=== PATIENT | female | born 1975 | race Caucasian/White ===

== ENCOUNTER → 2018-08-26 14:17 | Outpatient (CLI) | payer OTHER, SELFPAY ==
[2018-08-30 17:09] LABS: HPV APTIMA, High Risk Negative (Negative)
== END ==
PROVIDERS: Visit Provider Obstetrics & Gynecology
DX: Z12.4 Encounter for screening for malignant neoplasm of cervix (principal)
CPT/HCPCS: 87624; 88175; G0145

== ENCOUNTER → 2018-12-10 | Outpatient (CLI) | payer OTHER, SELFPAY ==
[2018-12-10 20:40] LABS: Chlamydia Trachomatis by PCR Negative (Negative); Neisserai gonorrhoeae by PCR Negative (Negative); Probe Check PASS; Sample Adequacy Control PASS; Specimen Processing Control PASS
== END | disposition home or self-care (01) ==
PROVIDERS: Visit Provider Obstetrics & Gynecology
DX: Z32.01 Encounter for pregnancy test, result positive (principal); Z11.3 Encounter for screening for infections with a predominantly sexual mode of transmission
CPT/HCPCS: 87491; 87591

== ENCOUNTER → 2019-01-06 | Outpatient (CLI) | payer OTHER, SELFPAY ==
[2019-01-06 16:09] LABS: Absolute Lymphocyte Count 1.81 X10^3/uL (0.83-4.51); Absolute Neutrophil Count 7.9 X10^3/uL (2.0-7.7); Basophil# 0.03 X10^3/uL; Basophil% 0.3 % (0-1); Eosinophil# 0.08 X10^3/uL; Eosinophils% 0.8 % (0-5); Hematocrit 36.2 % (37-47); Hemoglobin 12.4 g/dL (12.0-15.0); Lymphocyte # 1.81 X10^3/ul (4.0); Lymphocyte % 17.1 % (19-41); Mean Corp Hgb Conc 34.3 g/dL (32-36); Mean Corpuscular Hgb 31.1 pg (27.0-32.0); Mean Corpuscular Volume 90.7 fL (81-99); Mean Platelet Vol. 10.9 fl (6.2-12.0); Monocyte# 0.76 X10^3/uL; Monocyte% 7.2 % (0-10); NRBC Flagged by Analyzer 0 % (0-5); Neutrophil # 7.87 X10^3/uL (2.7-7.7); Platelet Count 226 K/mm3 (150-450); RBC Distribution Width CV 12.9 % (11.6-14.6); RBC Distribution Width SD 42.5 fl (35.1-43.9); Red Blood Count 3.99 M/mm3 (4.2-5.4); White Blood Count 10.6 K/mm3 (4.4-11.0)
[2019-01-06 16:10] LABS: Color, Urine Yellow (Yellow); Glucose, Dipstick Normal (Normal); Ketone-Dipstick Negative (Negative); Leukocyte Esterase-Dipstick 100 /ul (Negative); Nitrite-Dipstick Negative (Negative); Occult Blood-Urine 25 /ul (Negative); Protein-Dipstick Negative (Negative); Urine Bilirubin Dipstick Negative (Negative); Urine Clarity Clear (Clear); Urine Urobilinogen Normal (Normal); Urine pH 6.5 (5.0 - 8.0)
[2019-01-06 16:15] LABS: COTININE Drug Screen Negative (<200 ng/mL)
[2019-01-06 16:39] LABS: Thyroid Stim Hormone (TSH) 1.02 uIU/mL (0.358-3.74)
[2019-01-06 17:01] LABS: Amphetamine Urine VISTA NEGATIVE (<1000 ng/mL); Barbiturate Urine VISTA NEGATIVE (< 200 ng/mL); Benzodiazepine Urine VISTA NEGATIVE (< 200 ng/mL); Cocaine Urine VISTA NEGATIVE (< 300 ng/mL); Ecstacy Urine VISTA NEGATIVE (< 500 ng/mL); Methadone Urine VISTA NEGATIVE (< 300 ng/mL); PCP Urine VISTA NEGATIVE (< 25 ng/mL); THC Urine VISTA NEGATIVE (< 50 ng/mL); Vista UDS pH Range 6
[2019-01-07 09:43] LABS: HIV - WCH Non-Reactive (Nonreactive); Hepatitis B Surface Antigen Non-Reactive (Nonreactive); Hepatitis C Antibody Non-Reactive (Nonreactive); Rubella IgG 126.5 IU/mL; Vitamin D,25 Hydroxy 15.8 ng/mL (29.95-100.01)
[2019-01-10 04:45] LABS: Prenatal RPR NONREACTIVE (NONREACTIVE)
== END | disposition home or self-care (01) ==
LOC: WOBLAB 14:34
PROVIDERS: Visit Provider Obstetrics & Gynecology
DX: Z34.81 Encounter for supervision of other normal pregnancy, first trimester (principal)
CPT/HCPCS: 36415; 80307; 81002; 82306; 84443; 85025; 86703; 86762; 86803; 87340

== ENCOUNTER → 2019-04-08 11:14 | Outpatient (CLI) | payer OTHER, SELFPAY ==
[2017-01-04 01:10] VITALS: BMI 27.7
[2019-04-08 13:53] LABS: Hemoglobin 11.6 g/dL (12.0-15.0); Mean Corp Hgb Conc 32.2 g/dL (32-36); Mean Corpuscular Hgb 30.9 pg (27.0-32.0); Mean Corpuscular Volume 95.7 fL (81-99); Mean Platelet Vol. 10.5 fl (6.2-12.0); Platelet Count 200 K/mm3 (150-450); RBC Distribution Width CV 13.6 % (11.6-14.6); RBC Distribution Width SD 47.8 fl (35.1-43.9); Red Blood Count 3.76 M/mm3 (4.2-5.4); White Blood Count 11.5 K/mm3 (4.4-11.0)
[2019-04-08 13:58] LABS: Glucose Challenge Gest 1H 50g 149 mg/dL (70-140)
== END ==
PROVIDERS: Visit Provider Obstetrics & Gynecology
DX: Z34.82 Encounter for supervision of other normal pregnancy, second trimester (principal)
CPT/HCPCS: 36415; 82950; 85027; 86850

== ENCOUNTER → 2019-04-18 09:43 | Outpatient (CLI) | payer OTHER, SELFPAY ==
[2019-04-18 10:52] LABS: Glucose GTT-Gestation. Fasting 86 mg/dL (<105)
[2019-04-18 12:10] LABS: Glucose GTT-Gestational 1 Hr 162 mg/dL (<190)
[2019-04-18 13:42] LABS: Glucose GTT-Gestational 2 Hr 140 mg/dL (<165)
[2019-04-18 13:53] LABS: Glucose GTT-Gestational 3 Hr 121 L (<145)
== END ==
PROVIDERS: Referring Provider Obstetrics & Gynecology; Visit Provider Obstetrics & Gynecology
DX: Z34.83 Encounter for supervision of other normal pregnancy, third trimester (principal); R73.09 Other abnormal glucose
CPT/HCPCS: 36415; 82951; 82952

== ENCOUNTER → 2019-06-18 17:04 | Outpatient (CLI) | payer OTHER, SELFPAY ==
[2017-01-04 01:10] VITALS: BMI 27.7
== END ==
PROVIDERS: Visit Provider Obstetrics & Gynecology
DX: Z36.85 Encounter for antenatal screening for Streptococcus B (principal)
CPT/HCPCS: 87081

== ENCOUNTER 2019-07-01 05:20 | Inpatient (IN) | payer OTHER, SELFPAY ==
[2017-01-04 01:10] VITALS: BMI 27.7
[2019-07-01] VITALS (19 sets, daily range): BP systolic 97–136; BP diastolic 48–83; PULSE 76–91; RESP 13–20; TEMP 36.1–36.8; O2SAT 93–100; BMI 29.8
[2019-07-01] MEDS: Lactated Ringers 1,000 ML 999 ML IV (05:45)
[2019-07-01 06:00] LABS: Absolute Lymphocyte Count 2.46 X10^3/uL (0.83-4.51); Absolute Neutrophil Count 8.3 X10^3/uL (2.0-7.7); Basophil# 0.04 X10^3/uL; Basophil% 0.3 % (0-1); Eosinophil# 0.11 X10^3/uL; Eosinophils% 0.9 % (0-5); Hematocrit 37.3 % (37-47); Hemoglobin 12.4 g/dL (12.0-15.0); Lymphocyte # 2.46 X10^3/ul (4.0); Lymphocyte % 19.8 % (19-41); Mean Corp Hgb Conc 33.2 g/dL (32-36); Mean Corpuscular Hgb 30.5 pg (27.0-32.0); Mean Corpuscular Volume 91.9 fL (81-99); Mean Platelet Vol. 11.2 fl (6.2-12.0); Monocyte# 1.35 X10^3/uL; Monocyte% 10.9 % (0-10); NRBC Flagged by Analyzer 0 % (0-5); Neutrophil # 8.29 X10^3/uL (2.7-7.7); Neutrophil % 66.6 % (47-70); Platelet Count 194 K/mm3 (150-450); RBC Distribution Width CV 13.5 % (11.6-14.6); RBC Distribution Width SD 45.1 fl (35.1-43.9); Red Blood Count 4.06 M/mm3 (4.2-5.4); White Blood Count 12.4 K/mm3 (4.4-11.0)
[2019-07-01] MEDS: Lactated Ringers 1,000 ML 150 ML IV (06:50)
[2019-07-01] MEDS: Sodium Citrate/Citric Acid 30 ML UDC PO (07:15)
[2019-07-01] MEDS: Cefazolin 2 GM in 0.9% Normal Saline 100 ML IV (07:23)
--- NOTE | 2019-07-01 07:26 | PCM.HP.OB ---
- Problem List (1) 39 weeks gestation of Status: Acute (2) Previous section Status: Acute History Date of Admission: 07/01/19 Final MARK: 07/06/19 Final MARK Source: US <20 weeks Gestational age: 39 Weeks and 2 Days History of this : This is a 43 year-old, G [2], P [1], at 39 weeks gestational age presents for scheduled section. Surgical History: Surgical History (Last Updated 07/01/19 @ 07:27 by Silvana Linder MD) Previous section Z98.891 2017 Allergies No Known Allergies Allergy (Verified 07/01/19 05:40) Home Medications: Home Medications Vits [Prenatabs FA ] 1 tablet PO DAILY 01/04/17 Aspirin 81 mg PO 07/01/19 Calcium Carbonate [Tums] 200 mg PO 07/01/19 Omeprazole [Prilosec] 10 mg PO PRN PRN 07/01/19 Smoking Status: Never smoker Alcohol: None Number of Fetus(es): 1 NST - FHR Rate Baby A Baseline: 148 History Past Pregnancies: Past Pregnancies Delivery Date Name GA/ Weeks Outcome Route Wt Sex Labor Length Anesthesia Delivery Location Provider FOB Labs: Mom's Problem List Problem Status Onset Code 39 weeks gestation of Acute Z3A.39 Previous section Acute Z98.891 Mom's Labs & Results 07/01/19 07/01/19 05:45 05:45 WBC 12.4 H RBC 4.06 L Hgb 12.4 Hct 37.3 MCV 91.9 MCH 30.5 MCHC 33.2 RDW Std Deviation 45.1 H RDW Coeff of Joanie 13.5 Plt Count 194 MPV 11.2 Immature Gran % (Auto) 1.500 H Neut % (Auto) 66.6 Lymph % (Auto) 19.8 Juncos % (Auto) 10.9 H Eos % (Auto) 0.9 Baso % (Auto) 0.3 Absolute Neuts (auto) 8.3 H Absolute Lymphs (auto) 2.46 Nucleated RBC % 0 Blood Type AB NEGATIVE Antibody Screen NEGATIVE Course Did the patient receive Yes care? Labs Blood Type: AB RH: NEGATIVE RPR/VDRL/Syphilis Nonreactive Rubella status Immune HbSAg Negative Date Done: 01/06/19 Chlamydia Negative Gonorrhea Negative HIV/AIDS Non-Reactive Group B Strep: Negative Current Obstetrical History Gestational Diabetes No Incompetent Cervix No Infertility No IUGR No Macrosomia No Hypertension/Pre-eclampsia No Placenta Previa/Abruption No PTL/PROM No Uterine anomaly No Oligohydramnios No Polyhydramnios No Multiple gestation No Past Medical History Asthma No Diabetes No Hypertension No Heart disease No Mitral valve prolapse No Neurologic/Seizure disorder/ No Migraines Kidney disease No Liver disease No Varicosities No Clotting disorders/Hx of DVT No Thyroid Dysfunction No Other medical diseases No Psychiatric disorders No Major trauma No Abnormal PAP smear No Sleep apnea No Mammogram in the last 2 years No Social History Marital Status: Alleged father Yariel Hx Smoking No Smoking Status Never smoker Expected Infant Delivery Method: Scheduled Section Number of Visits: 9 Physical Exam Vitals: avss General: Alert, Oriented x3, Cooperative, No apparent distress HEENT: Atraumatic, Normocephalic Cardiovascular: Regular rate, Regular Rhythm Lungs: Clear to auscultation, Normal air movement Abdomen: Soft, Non Tender, Non-Distended, Gravid Neurological: Neuro grossly intact Estimated gestational size: Appropriate for gestational size Presentation: Cephalic Assessment/Plan All Active Problems (Last Updated 07/01/19 @ 07:27 by Silvana Linder MD) 39 weeks gestation of (Acute) Previous section (Acute) This is a 43 year-old, G [2], P [1], at 39.2 weeks gestational age. -Proceed as planned with repeat section
[2019-07-01] MEDS: Oxytocin 30 units/NS 500 ml 30 UNITS/500 ML IV.SOLN 167 UNITS IV (09:00)
[2019-07-01] MEDS: Ondansetron 4 MG/2 ML Vial IV (11:29)
[2019-07-01] MEDS: Lactated Ringers 1,000 ML 100 ML IV (12:00)
[2019-07-01] MEDS: proCHLORPERazine 10 MG/2 ML Vial IV (13:20)
[2019-07-01] MEDS: Ketorolac 30 MG/ML Syringe IV ×2 (13:41→20:03)
[2019-07-01] MEDS: Enoxaparin 40 MG/0.4 ML Syringe SC (20:03)
[2019-07-02] VITALS (7 sets, daily range): BP systolic 111–135; BP diastolic 49–74; PULSE 78–91; RESP 14–20; TEMP 36.7–37; O2SAT 97–99
[2019-07-02] MEDS: 0.9% Saline Lock 10 ML Syringe IV ×4 (01:13→21:10)
[2019-07-02] MEDS: Ketorolac 30 MG/ML Syringe IV ×4 (01:13→21:09)
[2019-07-02 04:02] LABS: Hematocrit 33.3 % (37-47); Hemoglobin 11.1 g/dL (12.0-15.0); Mean Corp Hgb Conc 33.3 g/dL (32-36); Mean Corpuscular Hgb 30.8 pg (27.0-32.0); Mean Corpuscular Volume 92.5 fL (81-99); Mean Platelet Vol. 10.9 fl (6.2-12.0); Platelet Count 183 K/mm3 (150-450); RBC Distribution Width CV 13.6 % (11.6-14.6); White Blood Count 14.1 K/mm3 (4.4-11.0)
--- NOTE | 2019-07-02 06:16 | PCM.OPRPT ---
Problem List (1) 39 weeks gestation of Status: Acute (2) Previous section Status: Acute Delivery Classification: Scheduled Final MARK: 07/06/19 Final MARK Source: US <20 weeks Gestational age: 39 Weeks and 2 Days wall to wall carpet installer: Suzanna Bazzi Type of Anesthesia:: Spinal Date of Procedure: 07/01/19 Pre-Operative Diagnosis: 39 2/7wga, prior C/S Post-Operative Diagnosis: 39 2/7wga, prior C/S Indications: 43-year-old 2 para 1 at 39-2/7 weeks gestational age with history of prior section. She opted for scheduled repeat section. Procedural risks, benefits, indications and alternatives were reviewed. The patient desired to proceed as planned. Indications for : Repeat Elective Description of Procedure: The patient was taken to the operating room and spinal analgesia was administered. She is placed in a dorsal supine position with left lateral tilt. The perineum and abdomen were prepped and draped in sterile fashion. And the spinal was found to be adequate. A Pfannenstiel incision was made using a scalpel and brought down to incise the subcutaneous tissue and rectus fascia at the midline. Subcutaneous tissue was bluntly dissected off the fascia laterally. The fascial incision was dissected laterally and cephalad using curved Adams scissors. The superior leaflet of the rectus fascia was grasped using Nuno clamps and bluntly dissected and sharply dissected from the underlying rectus muscle. In a similar fashion the inferior rectus fascia was dissected from the underlying muscle. The rectus muscles were bluntly at the midline. The peritoneum was identified and entered [sharply]. The bladder blade was placed into the abdomen and the vesicouterine peritoneal fold identified. The fold was incised and a bladder flap created. Bladder blade was then repositioned to the abdomen. A low transverse hysterotomy was made using the [Metzenbaum scissors] to level of the membranes. The hysterotomy was extended bluntly cephalad and caudad. The membranes were then ruptured revealing clear fluid. The head was elevated and brought to the level of the hysterotomy and the infant delivered revealing vigorous [male] . The cord was doubly clamped and cut after 30 seconds. The infant was passed to awaiting [nursery personnel]. The placenta was [expressed] from the uterus and appeared intact on inspection. The uterus was cleared of debris. The hysterotomy was then repaired using 0 Vicryl running lock suture. A second imbricating layer was also placed for additional hemostasis. The bladder blade was removed. The anterior cul-de-sac was cleared of debris. The peritoneum and rectus muscles were reapproximated using 2-0 Vicryl running suture. The rectus fascia was closed using 0 Vicryl strata fix suture. The subcutaneous tissue was sponge irrigated and small capillary bleeding controlled using the Bovie device. The subcutaneous tissue was reapproximated using 2-0 Vicryl. The skin was closed using 4-0 Monocryl subcuticularly by the DIRECTOR FIXED INCOME under my supervision. a Mepilex occlusive dressing was placed over the incision. The fundus was firm. The patient was then transferred to the recovery room without complication. Sponge, instrument, and needle counts were correct ?2. Amniotic Membrane Rupture Type: Artificial Amniotic Fluid Description: Clear Placenta Disposition: [facility] Drain: Awad to straight drain Fluids Replaced: 1000ml Cord Entanglement: None Cord Vessel Description: 3 Vessels Esitmated Blood Loss (ml): 600 Infant Gender: Female (1 minute): 9 (5 minute): 9 Delayed cord clamping: Yes Antibiotic Given: Ancef 2 grams IV x1 Pt instructed on risks of surgery: Bleeding, Anesthesia Risks, Infection, Need for Future C-Sections, Injury to surrounding structure(s) including bowel and bladder Complications: None - Admit VTE Documentation VTE Present on Admission: No VTE Mechan Device Prophylaxis: SCD's VTE Pharm Prophylaxis ordered?: Yes
--- NOTE | 2019-07-02 07:59 | PCM.PN.OB ---
Patient Problems: Active and Suspected Problems (Last Updated 07/01/19 @ 07:27 by Silvana Linder MD) 39 weeks gestation of (Acute) Previous section (Acute) Subjective: Pain controlled, oob, no nausea or vomiting. Tolerates PO. nursing well. Denies heavy lochia. Objective: avss - Physical Exam Vitals/I&O's: Vital Signs Temp Pulse Resp BP Pulse Ox 98.0 F 78 20 H 123/49 H 99 07/02/19 03:45 07/02/19 06:20 07/02/19 06:20 07/02/19 03:45 07/02/19 06:20 Oxygen Delivery Method Room Air Weight: 78.834 kg Body Mass Index (BMI) 29.8 Intake and Output for Last 24 Hours 06/30/19 07/01/19 07/02/19 23:59 23:59 23:59 Intake Total 4922.5 / 4922.5 750 / 750 Output Total 3300 / 3300 400 / 400 Balance 1622.5 / 1622.5 350 / 350 General: Alert, Oriented x3, Cooperative, No apparent distress HEENT: Atraumatic, Normocephalic Lungs: Clear to auscultation, Normal air movement Cardiovascular: Regular rate, Regular Rhythm, Normal S1, Normal S2 Abdomen: Soft, Non Tender, Non-Distended, - - fundus firm and nontender, incisional dressing c/d/i Extremities: No edema, No Calf Tenderness Neurological: Neuro grossly intact Psych/Mental Status: Normal Affect, Appropriate, Alert and oriented to time, place, person, mood and affect Laboratory Results 07/01/19 09:15: Screen NEGATIVE, Baby's Blood Type B POSITIVE, Baby's ROBERT NEGATIVE 07/02/19 03:58: WBC 14.1 H, RBC 3.60 L, Hgb 11.1 L, Hct 33.3 L, MCV 92.5, MCH 30.8, MCHC 33.3, RDW Std Deviation 46.0 H, RDW Coeff of Joanie 13.6, Plt Count 183, MPV 10.9 Current Medications Acetaminophen (Tylenol) 1,000 mg PO Q8H PRN PRN Reason: Pain Score 1-3/10 Bisacodyl (Dulcolax) 10 mg RECTAL UD PRN PRN Reason: If no BM Diphenhydramine HCl (Benadryl) 25 mg PO Q6H PRN PRN PRN Reason: itching Enoxaparin Sodium (Lovenox) 40 mg SC 1999 [facility] Last Admin: 07/01/19 20:03 Dose: 40 mg Documented by: Hydrocortisone (Hytone) 1 applic TOPICAL TID PRN PRN; Protocol PRN Reason: Discomfort Naloxone HCl 4 mg/ Dextrose 504 mls @ 0 mls/hr IV .Q0M PRN; Protocol PRN Reason: Respiratory depression Ibuprofen (Motrin) 600 mg PO Q6H PRN PRN PRN Reason: Pain Score 1-3/10 Ketorolac Tromethamine (Toradol) 30 mg IV Q6H [facility] Stop: 07/03/19 07:31 Last Admin: 07/02/19 07:02 Dose: 30 mg Documented by: Methylergonovine Maleate (Methergine) 0.2 mg IM X1 PRN PRN Reason: Uterine Atony Naloxone HCl (Narcan) 0.02 mg IV Q1M PRN PRN Reason: RR <10 and pt unresponsive Ondansetron HCl (Zofran) 4 mg IV Q4H PRN PRN PRN Reason: Nausea Last Admin: 07/01/19 11:29 Dose: 4 mg Documented by: Oxycodone HCl (Oxyir) 5 - 10 mg PO Q4H PRN PRN PRN Reason: Pain Score 4-10/10 Multivit/Folic Acid/Iron (Prenatabs Fa) 1 tablet PO DAILY [facility] Last Admin: 07/01/19 12:19 Dose: Not Given Documented by: Prochlorperazine Edisylate (Compazine Iv) 10 mg IV Q6H PRN PRN PRN Reason: NAUSEA Last Admin: 07/01/19 13:20 Dose: 10 mg Documented by: Senna/Docusate Sodium (Senokot-S, Libby-Colace) 0 tablet PO DAILY PRN PRN Reason: Constipation Simethicone (Mylicon) 80 mg PO PCHS PRN PRN Reason: Indigestion/stomach pain Sodium Chloride () 5 - 15 ml IV UD PRN PRN Reason: SALINE FLUSH Last Admin: 07/02/19 07:03 Dose: 10 ml Documented by: Medical Necessity - Tobacco Use Smoking Status: Never smoker Assessment/Plan All Active Problems (Last Updated 07/01/19 @ 07:27 by Silvana Linder MD) 39 weeks gestation of (Acute) Previous section (Acute) This is a 43 year-old, G [2], P [2]POD#1 s/p RLTCS doing well. -AB negative - infant B positive, Rhogam - -Routine postop care
--- NOTE | 2019-07-02 08:07 | DCINST_ITS ---
Discharge Diet: No Restrictions Discharge Activity: Return to Normal Activity, May Shower, - May resume sexual activity in: 6 weeks Lifting Restrictions: 10-20 lb Suture Line Care: Avoid Pulling/Pushing Remove Dressing in (days):: 3 Cleanse incision/area with: Soap & Water Additional Instructions: If you experience any of the following, contact your healthcare provider. * Bleeding that soaks a pad every hour for 2 hours * Fever 100.4 or higher * Unrelieved incision or abdominal pain * Swelling, redness, discharge or bleeding from your incision or episiotomy site * Your incision begins to separate * Problems urinating (including inability to urinate or burning while urinating). * Visual changes * Severe headache * Flu-like symptoms * Pain or redness in one of both of your breasts * Pain, warmth, tenderness or swelling in your legs, especially the calf area * Frequent nausea and vomiting * Symptoms of depression or anxiety If you experience any of the following, call 911 or go to the nearest Emergency Room. * Chest pain * Problems breathing * Seizure activity * Partial or complete paralysis of a body part, slurred speech, weakness or drooping of the face, or a sudden inability to walk or hold your balance Allergies/Adverse Reactions: Allergies No Known Allergies Allergy (Verified 07/01/19 05:40) Medications to take at Discharge Vits [Prenatabs FA ] 1 tablet PO DAILY 01/04/17 Aspirin 81 mg PO 07/01/19 Calcium Carbonate [Tums] 200 mg PO 07/01/19 Omeprazole [Prilosec] 10 mg PO PRN PRN 07/01/19 Ibuprofen [Motrin] 600 mg PO TID PRN #30 tab 07/02/19 Oxycodone [Oxyir] 5 mg PO Q6H PRN PRN 7 Days #20 tablet 07/02/19 The following prescriptions were given: Ibuprofen [Motrin] 600 mg PO TID PRN #30 tab PRN Reason: Pain Or Fever Transmission Status: Pending to [facility] Oxycodone [Oxyir] 5 mg PO Q6H PRN PRN 7 Days #20 tablet PRN Reason: Pain Score 4-10/10 Follow-Up: Call to make an appointment with your doctor for an incision check in 1-2 weeks. You will also need a 6 week post- follow up appointment. Test results from this visit will be discussed in further detail at your follow- up appointment, if applicable. Please Follow Up With: Silvana Linder MD When: 1-2 weeks Please Follow Up With: Silvana Linder MD When: 6 weeks Primary Care Physician: Care Physician,No Primary [Primary Care Provider] -
[2019-07-02] MEDS: Prenatal Vits Tablet 1 TABLET PO (13:45)
[2019-07-02] MEDS: Enoxaparin 40 MG/0.4 ML Syringe SC (21:10)
[2019-07-03] MEDS: Ketorolac 30 MG/ML Syringe IV (03:09)
[2019-07-03] MEDS: 0.9% Saline Lock 10 ML Syringe IV (03:09)
[2019-07-03 03:10] VITALS: BP 124/61; PULSE 82; RESP 18; TEMP 36.7; O2SAT 97
[2019-07-03 08:00] VITALS: BP 117/68; PULSE 80; RESP 16; TEMP 36.8
[2019-07-03] MEDS: Ibuprofen 600 MG Tablet PO (08:40)
[2019-07-03] MEDS: Senna/Docusate Sodium 1 Tablet PO (08:40)
--- NOTE | 2019-07-03 08:51 | DS.PCM_ITS ---
Discharge Date and Diagnosis - Problem List Patient Problems: Active and Suspected Problems (Last Updated 07/01/19 @ 07:27 by Silvana Sanders MD) 39 weeks gestation of (Acute) Previous section (Acute) Date of Admission: 07/01/19 Date of Discharge: 07/03/19 - Primary Discharge Diagnosis Active and Suspected Problems (Last Updated 07/01/19 @ 07:27 by Silvana Sanders MD) 39 weeks gestation of (Acute) Previous section (Acute) Hospital Course and Treatment Operations: - - Primary C/S Summary of Care Provided: The patient is a 43 year old F [] Patient Problems: Active and Suspected Problems (Last Updated 07/01/19 @ 07:27 by Silvana Sanders MD) 39 weeks gestation of (Acute) Previous section (Acute) Subjective: Feeling well. female infant. Wants to go home today. Objective: VSS. Hypoactive bowel sounds. Encouraged ambulation and stool softener. Pain well controlled with IV medication, but educated on switching to oral medication before discharge for pain tolerance. Fundus u/2, firm, midline with normal lochia rubra. Surgical dressing CDI. Maternal/ dyad stable for discharge. - Physical Exam Vitals/I&O's: Vital Signs Temp Pulse Resp BP Pulse Ox 98.0 F 82 18 124/61 H 97 07/03/19 03:10 07/03/19 03:10 07/03/19 03:10 07/03/19 03:10 07/03/19 03:10 Oxygen Delivery Method Room Air Weight: 78.834 kg Body Mass Index (BMI) 29.8 Intake and Output for Last 24 Hours 07/01/19 07/02/19 07/03/19 23:59 23:59 23:59 Intake Total 4922.5 / 4922.5 750 / 750 Output Total 3300 / 3300 1200 / 1200 Balance 1622.5 / 1622.5 -450 / -450 General: Alert, Oriented x3, Cooperative HEENT: Atraumatic, PERRLA, EOMI, Normocephalic Neck: Supple, No JVD, Negative Carotid Bruits Lungs: Clear to auscultation, Normal air movement Cardiovascular: Regular rate, No murmurs Abdomen: Bowel Sounds Present, Soft, Non Tender, Hypoactive Bowel Sounds, - - fundus u/2. Dressing CDI Extremities: No edema, Capillary Refill Less than 3 Seconds Skin: No rashes, No breakdown Musculoskeletal: No Tenderness to Palpation of Joints or Extremities Neurological: Cranial nerves II-XII grossly intact Psych/Mental Status: Normal Affect, Appropriate Current Medications Acetaminophen (Tylenol) 1,000 mg PO Q8H PRN PRN Reason: Pain Score 1-3/10 Bisacodyl (Dulcolax) 10 mg RECTAL UD PRN PRN Reason: If no BM Diphenhydramine HCl (Benadryl) 25 mg PO Q6H PRN PRN PRN Reason: itching Enoxaparin Sodium (Lovenox) 40 mg SC 1999 [facility] Last Admin: 07/02/19 21:10 Dose: 40 mg Documented by: Hydrocortisone (Hytone) 1 applic TOPICAL TID PRN PRN; Protocol PRN Reason: Discomfort Naloxone HCl 4 mg/ Dextrose 504 mls @ 0 mls/hr IV .Q0M PRN; Protocol PRN Reason: Respiratory depression Ibuprofen (Motrin) 600 mg PO Q6H PRN PRN PRN Reason: Pain Score 1-3/10 Last Admin: 07/03/19 08:40 Dose: 600 mg Documented by: Methylergonovine Maleate (Methergine) 0.2 mg IM X1 PRN PRN Reason: Uterine Atony Naloxone HCl (Narcan) 0.02 mg IV Q1M PRN PRN Reason: RR <10 and pt unresponsive Ondansetron HCl (Zofran) 4 mg IV Q4H PRN PRN PRN Reason: Nausea Last Admin: 07/01/19 11:29 Dose: 4 mg Documented by: Oxycodone HCl (Oxyir) 5 - 10 mg PO Q4H PRN PRN PRN Reason: Pain Score 4-10/10 Multivit/Folic Acid/Iron (Prenatabs Fa) 1 tablet PO DAILY [facility] Last Admin: 07/02/19 13:45 Dose: 1 tablet Documented by: Prochlorperazine Edisylate (Compazine Iv) 10 mg IV Q6H PRN PRN PRN Reason: NAUSEA Last Admin: 07/01/19 13:20 Dose: 10 mg Documented by: Senna/Docusate Sodium (Senokot-S, Libby-Colace) 0 tablet PO DAILY PRN PRN Reason: Constipation Last Admin: 07/03/19 08:40 Dose: 2 tablet Documented by: Simethicone (Mylicon) 80 mg PO PCHS PRN PRN Reason: Indigestion/stomach pain Sodium Chloride () 5 - 15 ml IV UD PRN PRN Reason: SALINE FLUSH Last Admin: 07/03/19 03:09 Dose: 10 ml Documented by: Discharge Diet: No Restrictions Discharge Activity: Return to Normal Activity, May Shower, - May resume sexual activity in: 6 weeks Suture Line Care: Avoid Pulling/Pushing Remove Dressing in (days):: 3 Cleanse incision/area with: Soap & Water Home Medications: Medications to take at Discharge Vits [Prenatabs FA ] 1 tablet PO DAILY 01/04/17 Aspirin 81 mg PO 07/01/19 Calcium Carbonate [Tums] 200 mg PO 07/01/19 Omeprazole [Prilosec] 10 mg PO PRN PRN 07/01/19 Ibuprofen [Motrin] 600 mg PO TID PRN #30 tab 07/02/19 Oxycodone [Oxyir] 5 mg PO Q6H PRN PRN 7 Days #20 tab 07/02/19 Following Prescrptions Were Given to Patient: Ibuprofen [Motrin] 600 mg PO TID PRN #30 tab PRN Reason: Pain Or Fever Transmission Status: Received by [facility] Oxycodone [Oxyir] 5 mg PO Q6H PRN PRN 7 Days #20 tab PRN Reason: Pain Score 4-10/10 Primary Care Physician: Care Physician,No Primary [Primary Care Provider] - Please Follow Up With: Silvana Linder MD When: 1-2 weeks Please Follow Up With: Silvana Linder MD When: 6 weeks Patient Instructions: at Home, Nutrition While , Understanding Depression Disposition: Home Minutes spent on discharge:: 15 Patient Condition:: Good Medical Necessity - Tobacco Use Smoking Status: Never smoker Meaningful Use Info Meaningful Use Diagnoses (Choose all that apply): None applicable
== END 2019-07-03 11:10 | disposition home or self-care (01) | DRG 788 ==
PROVIDERS: Admitting Provider Obstetrics & Gynecology; Visit Provider Obstetrics & Gynecology
PROC: 10D00Z1 Extraction of Products of Conception, Low, Open Approach (ICD-10-PCS; CPT 59514; principal; 2019-07-01 07:15)
DX: O34.211 Maternal care for low transverse scar from previous cesarean delivery (principal); Z37.0 Single live birth; Z3A.39 39 weeks gestation of pregnancy
CPT/HCPCS: 85025; 85027; 85461; 86850; 86900; 86901; 90384; 99218; 99251; J7120; A4216; G0378; G0463; J2405; J2790

== ENCOUNTER → 2019-10-24 11:18 | Outpatient (CLI) | payer OTHER, SELFPAY ==
[2019-07-01 05:43] VITALS: BMI 29.8
--- NOTE | 2019-10-24 11:21 | BI_ITS ---
MAMMOGRAPHY - BILATERAL SCREENING REASON FOR EXAM: Female, 43 years old. Routine annual screening examination. PERTINENT HISTORY: Non-contributory. TECHNIQUE: Digital bilateral breast horace (3D mammographic acquisition) in the CC and MLO projections. 2-D mediolateral oblique (MLO) and craniocaudad (CC) views of both breasts were obtained. CAD: Full Field Digital Mammography with Computer Added Detection was performed. COMPARISON: None. Baseline examination. FINDINGS: Breast Composition: The breasts are heterogeneously dense, which may obscure small masses. There are no dominant masses or suspicious calcifications. Small benign-appearing bilateral axillary lymph nodes. No other significant abnormalities are identified. There has been no significant change since the prior study. BI/SCREEN MAMM (CAD) W/HORACE BILAT IMPRESSION: Stable bilateral screening mammogram. Yearly follow-up mammogram recommended. (A) ASSESSMENT CATEGORY: BIRADS Category 2: Benign. A letter regarding these results will be sent to the patient by the facility within 30 days. Approximately 10% of breast cancers are not detected by mammography. A normal mammogram should not delay biopsy of a clinically suspicious abnormality. [id number] Electronically Signed: Micheal Alonzo, at 12:30 EDT , Service support ,
== END ==
PROVIDERS: Referring Provider Obstetrics & Gynecology; Visit Provider Obstetrics & Gynecology
DX: Z12.31 Encounter for screening mammogram for malignant neoplasm of breast (principal)
CPT/HCPCS: 77063; 77067

== ENCOUNTER → 2025-05-21 | Outpatient (CLI) | payer BC, SELFPAY | END | disposition home or self-care (01) | PROVIDERS: Referring Provider Family Medicine; Visit Provider Family Medicine | DX: R30.0 Dysuria (principal) | CPT/HCPCS: 87077; 87086; 87088; 87186 ==